=== PATIENT | male | born 1965 | race African-American/Black ===

== ENCOUNTER 2020-08-18 13:16 | Emergency (ER) | payer OTHER, SELFPAY | END 2020-08-18 13:47 | disposition left against medical advice (07) | LOC: ANHED 13:53 | DX: Z53.21 Procedure and treatment not carried out due to patient leaving prior to being seen by health care provider (principal) | CPT/HCPCS: 99199 ==

== ENCOUNTER 2021-06-29 16:11 | Emergency (ER) | payer BC, SELFPAY ==
--- NOTE | ~2021-06-29 | US_ITS ---
EXAMINATION: US venous doppler [facility] DATE: 06/29/2021 17:05 INDICATION: Left calf pain. Left lower limb swelling. TECHNIQUE: Grayscale ultrasound images without and with compression and Doppler ultrasound images of the left lower extremity veins were obtained. COMPARISON: None. FINDINGS: The visualized portions of left common femoral vein, profunda (deep) femoral vein, femoral vein, popl iteal vein, peroneal veins, posterior tibial veins, and greater saphenous vein outflow are patent. IMPRESSION: 1. No deep venous thrombosis. Reviewed, dictated and finalized at location A. [employer]
[2021-06-29 16:14] VITALS: BP 145/97; PULSE 94; RESP 14; TEMP 36.7; O2SAT 99
--- NOTE | 2021-06-29 16:48 | ED.LOWEXIN ---
HPI - Extremity Injury (Lower) General Chief Complaint: Extremity Injury, Lower Stated Complaint: leg swelling Time Seen by Provider: 06/29/21 16:38 Source: RN notes reviewed History of Present Illness HPI Narrative: Patient presents emergency room from home for left lower extremity swelling he states that the swelling has been present for the past week he states that the swelling has been worse then improved and got worse again he denies any pain with the swelling he denies any direct trauma or injury denies any fevers or chills chest pain shortness of breath abdominal pain numbness or tingling extremity or any other symptoms states he has had no long car or airplane rides. He denies any history of blood clots Review of Systems Review of Systems: Gen.: Denies fevers or chills ENT: Denies congestion Respiratory: Denies shortness of breath or cough CV: Denies chest pain or palpitations GI: Denies abdominal pain nausea, emesis Musculoskeletal: See HPI Neuro: Denies numbness, tingling, weakness or focal weakness Skin: Denies rash Except as documented, all other systems reviewed and negative [facility] Past Medical History Medical History (Updated 06/29/21 @ 18:08 by Sukhi Chavarria DO) Patient denies significant medical history Social History Social History (Updated 06/29/21 @ 16:49 by Sukhi Chavarria DO) Smoking status: Never smoker Exam Narrative: APPEARANCE: No acute distress, nontoxic, resting in bed EYES: EOMI HEENT: Normocephalic, atraumatic, OMM RESPIRATORY: No respiratory distress Clear to auscultation bilaterally with no rhonchi wheezing or rales. CARDIOVASCULAR: Regular rate and rhythm without murmurs rubs or gallops. ABDOMINAL: Soft, nontender, nondistended, no rebound or guarding MUSCULOSKELETAl: Moves all extremities. No clubbing, cyanosis 3+ edema of the left lower extremity no tenderness of the hip knee or ankle full range of motion of all dorsalis pedis pulse 2+ neurovascular intact NEURO: Awake and alert. Following commands, speech normal, no focal deficits SKIN:: Warm, dry. No rashes lesions or abrasions PSYCHIATRIC: Normal affect/mood, Course Course Emergency Course: Discussed with patient results of workup and diagnosis. Discussed need for follow-up with primary care, proper use of medication, and reasons to return to the emergency department. Patient understands and agrees to current treatment plan patient states he is planning to see a new primary care physician and is set up for an appointment Vital Signs Vital signs: Vital Signs Temperature 98.0 F 06/29/21 16:14 Pulse Rate 94 06/29/21 16:14 Respiratory Rate 14 06/29/21 16:14 Blood Pressure 145/97 H 06/29/21 16:14 Pulse Oximetry 99 06/29/21 16:14 Temperature 98.0 F 06/29/21 16:14 Pulse Rate 94 06/29/21 16:14 Respiratory Rate 14 06/29/21 16:14 Blood Pressure 145/97 H 06/29/21 16:14 Pulse Oximetry 99 06/29/21 16:14 MDM - Extremity Injury (Lower) Lab Data Result diagrams: 06/29/21 17:21 06/29/21 17:21 Labs: Lab Results 06/29/21 06/29/21 06/29/21 Range/Units 17:21 17:21 17:21 WBC 6.0 (4.5-10.0) K/mm3 RBC 4.97 (4.6-6.20) M/mm3 Hgb 12.0 L (14.0-18.0) g/dL Hct 38.3 L (42.0-52.0) % MCV 77.1 L (80-100) fl MCH 24.1 L (26-34) pg MCHC 31.3 L (32-36) g/dl RDW 14.9 H (11.5-14.5) % Plt Count 321 (150-375) k/mm3 MPV 8.5 (7.4-10.4) fl Immature Gran % (Auto) 0.5 (0-0.5) % Neut % (Auto) 52.9 (45.5-73.1) % Lymph % (Auto) 29.1 (18.3-44.2) % Franklin % (Auto) 12.5 H (2.6-8.5) % Eos % (Auto) 4.3 (0-4.4) % Baso % (Auto) 0.7 (0.2-1.2) % Lymph # (Auto) 1.75 (0.9-3.2) K/mm3 Franklin # (Auto) 0.8 H (0.1-0.6) K/mm3 Eos # (Auto) 0.3 (0-0.3) K/mm3 Baso # (Auto) 0.0 (0.0-0.1) K/mm3 Abs Immat Gran (auto) 0.03 (0.00-0.031) K/mm3 Absolute Neuts (auto) 3.2 (1.3-6.7) K/mm3 Absolute Nucleated RBC 0.0
[2021-06-29 17:40] LABS: Basophils Percent Auto 0.7 % (0.2-1.2); Eosinophils Absolute Auto 0.3 K/mm3 (0-0.3); Eosinophils Percent Auto 4.3 % (0-4.4); Hematocrit 38.3 % (42.0-52.0); Immature Granulocyte Absolute 0.03 K/mm3 (0.00-0.031); Immature Granulocyte Percent A 0.5 % (0-0.5); Lymphocytes Absolute Auto 1.75 K/mm3 (0.9-3.2); Lymphocytes Percent Auto 29.1 % (18.3-44.2); Mean Corpuscular HGB Conc 31.3 g/dl (32-36); Mean Corpuscular Hemoglobin 24.1 pg (26-34); Mean Corpuscular Volume 77.1 fl (80-100); Mean Platelet Volume 8.5 fl (7.4-10.4); Monocytes Absolute Auto 0.8 K/mm3 (0.1-0.6); Monocytes Percent Auto 12.5 % (2.6-8.5); Neutrophils Absolute Auto 3.2 K/mm3 (1.3-6.7); Neutrophils Percent Auto 52.9 % (45.5-73.1); Platelet Count Result 321 k/mm3 (150-375); Red Blood Count 4.97 M/mm3 (4.6-6.20); Red Cell Distribution Width 14.9 % (11.5-14.5)
[2021-06-29 17:51] LABS: Partial Thromboplastin Time 29.7 SECONDS (22.3-36.8)
[2021-06-29 17:52] LABS: Alanine Aminotransferase 29 U/L (4-50); Albumin Level 4.4 g/dL (3.5-5.1); Alkaline Phosphatase 107 U/L (38-126); Anion Gap 9 mmol/L (8-16); Aspartate Amino Transferase 36 U/L (17-59); Bilirubin,Total 0.2 mg/dL (0.2-1.3); Blood Urea Nitrogen 17 mg/dL (9-20); Calcium 9.6 mg/dL (8.4-10.2); Carbon Dioxide 27 mmol/L (22-30); Chloride 101 mmol/L (98-107); Estimated CRCL calculation 119 ml/min; Estimated Glomerular Filt Rate > 60; Glucose 104 mg/dL (65-110); Potassium 3.9 mmol/L (3.4-5.0); Sodium 137 mmol/L (137-145)
[2021-06-29 18:01] LABS: NT Pro B Type Natriuretic Pept 40 pg/mL (5-100)
== END 2021-06-29 18:15 | disposition home or self-care (01) ==
PROVIDERS: Emergency Provider Emergency Medicine
DX: R60.0 Localized edema (principal)
CPT/HCPCS: 36415; 80053; 83880; 85025; 85610; 85730; 93971; 99284